=== PATIENT | male | born 1950 | race Caucasian/White ===

== ENCOUNTER 2021-02-28 13:45 | Day surgery (SDC) | payer MEDICARE, BC ==
[2021-02-23 16:38] LABS: BASOPHILS # (AUTO) 0.1 X10'3 (0-0.2); BASOPHILS % (AUTO) 0.9 % (0-1); EOSINOPHILS # (AUTO) 0.2 X10'3 (0-0.9); EOSINOPHILS % (AUTO) 3.4 % (0-6); LYMPHOCYTES # (AUTO) 1.5 X10'3 (1.1-4.8); LYMPHOCYTES % (AUTO) 22.2 % (21-51); MEAN CORPUSCULAR HEMOGLOBIN 31.9 PG (27.0-31.0); MEAN CORPUSCULAR HGB CONC 33.7 g/dL (33.0-36.5); MEAN CORPUSCULAR VOLUME 94.6 FL (78-98); MEAN PLATELET VOLUME 7.2 FL (7.4-10.4); MONOCYTES # (AUTO) 0.8 X10'3 (0-0.9); MONOCYTES % (AUTO) 11.7 % (2-12); NEUTROPHILS # (AUTO) 4.2 X10'3 (1.8-7.7); NEUTROPHILS % (AUTO) 61.8 % (42-75); PRE OP HEMATOCRIT 44.8 % (42.0-52.0); PRE OP HEMOGLOBIN 15.1 g/dL (14.0-17.9); PRE OP PLATELET COUNT 277 X10'3 (140-440); RED BLOOD COUNT 4.74 X10'6 (4.70-6.10); RED CELL DISTRIBUTION WIDTH 14.5 % (11.5-14.5)
[2021-02-23 16:48] LABS: PRE OP PROTIME 10.7 SECONDS (9.0-12.0)
[2021-02-23 16:52] LABS: ALBUMIN/GLOBULIN RATIO 1.1 (1.1-1.5); ALKALINE PHOSPHATASE 75 IU/L (46-116); BLOOD UREA NITROGEN 22 MG/DL (7-18); BUN/CREATININE RATIO 17.9 (5.4-32.0); CALCIUM 8.8 MG/DL (8.5-10.1); CHLORIDE 106 MMOL/L (99-107); CREATININE 1.23 MG/DL (0.60-1.10); PRE OP ALT 35 U/L (30-65); PRE OP ANION GAP 7 (8-16); PRE OP AST 18 U/L (10-37); PRE OP BILIRUB, TOTAL 0.3 MG/DL (0.0-1.0); PRE OP GLUCOSE 138 MG/DL (70-104); PRE OP POTASSIUM 4.8 MMOL/L (3.4-5.1); PRE OP SODIUM 143 MMOL/L (135-145); TOTAL CARBON DIOXIDE 30.1 MMOL/L (24-32); TOTAL PROTEIN 7.7 G/DL (6.4-8.2); eGFR 58 ML/MIN
[~2021-02-28] VITALS: Ht 177.8 cm; Wt 81.6 kg
[2021-02-28] VITALS (17 sets, daily range): BP systolic 114–191; BP diastolic 58–101
[~2021-02-28 13:45] MED LIST: FEXO-219 PO; FISH OIL; VITAMIN E; cefazolin/dext.iso 2gm/100ml IV ONE; famotidine 20mg tablet PO ONE; ringers solution, lacted 1,000 ML IV SCH; vancomycin 1,500 MG in NS 300ml IV soln IV ONE
[2021-02-28] MEDS ORDERED: BUPIVAcaine/PF 2.5 mg/ml (0.25%) 30ml vial ONE (14:39)
[2021-02-28] MEDS ORDERED: sevoflurane 250ml liquid IH ONE (14:42)
[2021-02-28] MEDS ORDERED: dexamethasone sod phosphate 10mg/ml inj ONE (14:42)
[2021-02-28] MEDS ORDERED: rocuronium 10mg/ml inj IV ONE (14:42)
[2021-02-28] MEDS ORDERED: midazolam 1 mg/ML 2ml injection ONE (14:42)
[2021-02-28] MEDS ORDERED: propofol inj 20 ML IV ONE (14:42)
[2021-02-28] MEDS ORDERED: ondansetron/PF 4mg/2ml inj ONE (14:42)
[2021-02-28] MEDS ORDERED: fentaNYL /PF 50mcg/ml 5ml ampule ONE (14:42)
[2021-02-28] MEDS ORDERED: ceFAZolin 1000mg inj ONE (14:44)
[2021-02-28] MEDS ORDERED: ringers solution, lacted 1,000 ML IV SCH (15:10)
[2021-02-28] MEDS ORDERED: ondansetron/PF 4mg/2ml inj IV PRN ×2 (15:10→17:55)
[2021-02-28] MEDS ORDERED: meperidine/PF 25mg/ml syringe IV PRN ×2 (15:10)
[2021-02-28] MEDS ORDERED: morphine 2 MG/ML inj. syringe IV PRN (15:10)
[2021-02-28] MEDS ORDERED: proCHLORperazine 10 MG/2 ml inj IV PRN (15:10)
[2021-02-28] MEDS ORDERED: morphine 4 MG/ML inj SYRINge IV PRN (15:10)
[2021-02-28] MEDS ORDERED: fentaNYL/PF 50MCG/1 ML 2ML syringe ONE (17:18)
--- NOTE | 2021-02-28 17:47 | NUR ---
Received from OR via , accompanied by Anesthesiologist DR LOVE and report given by Anesthesiolgist. PT PRESENT SWITH 20 G RIGHT FOREARM, PT'S LEFT SHOULDER DRESWSING DRY AND INTACT, VSS. Addendum: 02/28/21 at 1759 by Francine Maya RN, RN Amended: Links added.
[2021-02-28] MEDS ORDERED: acetaminophen 325mg tablet PO PRN (17:55)
[2021-02-28] MEDS ORDERED: magnesium hydroxide 30ml (MOM) UD suspension PO PRN (17:55)
[2021-02-28] MEDS ORDERED: bisacodyl 10mg suppository rectal RC PRN (17:55)
[2021-02-28] MEDS ORDERED: HYDROcodone/acetaminophen 10/325mg tab PO PRN (17:55)
[2021-02-28] MEDS ORDERED: potassium Cl 20mEq in NS 1,000 ML IV SCH (17:55)
[2021-02-28] MEDS ORDERED: diphenhydrAMINE 25mg capsule PO PRN ×2 (17:55)
[2021-02-28] MEDS: meperidine/PF 25mg/ml syringe IV PRN ×4 (18:15→18:54)
--- NOTE | 2021-02-28 19:16 | NUR ---
Patient in room . I have received report from Francine Mendoza in recovery and had the opportunity to ask questions and assume patient care. Addendum: 02/28/21 at 1916 by Kamilla Medina RN Amended: Links added.
--- NOTE | 2021-02-28 19:39 | NUR ---
PATIENT HAS MET ALL CRITERIA FOR TRANSFER TO THE ORTHO FLOOR. VSS. DRESSINGS INTACT. BED LOW, CALL LIGHT PRESENT AND 2 RAILS UP. SEAN MAYO PRESENT TO ACCEPT CARE OF PATIENT AND REPORT HAS BEEN CALLED. ALL QUESTIONS ANSWERED TO ACCEPTING RN. Addendum: 02/28/21 at 1940 by Francine Olivas - SEAN ESTRADA Amended: Links added.
[2021-02-28] MEDS ORDERED: vancomycin/NS 1 GM ADD-VANTAGE 250 ML IV SCH (20:00)
[2021-02-28] MEDS: HYDROmorphone 1 mg/ml syringe IV PRN (20:53)
[2021-02-28] MEDS ORDERED: sennosides 8.6mg tablet PO SCH (21:00)
--- NOTE | 2021-02-28 23:15 | NUR ---
PT RESTING COOL PACK TO LEFT SHOULDER VSS.
[2021-02-28] MEDS: ceFAZolin/D5W- 1GM premix 50 ML IV SCH (23:43)
[2021-03-01] VITALS: BP 114/58
[2021-03-01] MEDS: HYDROcodone/acetaminophen 10/325mg tab PO PRN ×3 (01:00→10:07)
--- NOTE | 2021-03-01 01:00 | NUR ---
pt awake c/o pain 04/19 medicated with po norco for this. vss.
[2021-03-01 02:00] VITALS: BP 179/73
--- NOTE | 2021-03-01 02:27 | NUR ---
RESTING WITHOUT CHANGES.
[2021-03-01] MEDS: HYDROmorphone 1 mg/ml syringe IV PRN ×2 (03:45→08:00)
--- NOTE | 2021-03-01 03:49 | NUR ---
awoke to void 320 per urinal and ice pack to left shoulder switched out. positioned to comfort and medicated for pain with Dilaudid iv for pain 04/19. at this time.
[2021-03-01 04:00] VITALS: BP 187/67
--- NOTE | 2021-03-01 05:07 | NUR ---
resting eyes closed appears comfortable.
--- NOTE | 2021-03-01 05:47 | NUR ---
pt awoke c/o pain 04/19 medicated with 2 norco's for this.
[2021-03-01 06:00] VITALS: BP 179/57
--- NOTE | 2021-03-01 06:08 | NUR ---
medicated for pain with 2 norco's po and new ice pack to left shoulder.
--- NOTE | 2021-03-01 06:24 | NUR ---
Problems reprioritized. Patient report given, questions answered & plan of care reviewed with BEBETO ESTRADA. Addendum: 03/01/21 at 06 by Kamilla Medina RN Amended: Links added.
--- NOTE | 2021-03-01 06:40 | NUR ---
Patient in room ORTHO 4022. I have received report from SEAN Kohli and had the opportunity to ask questions and assume patient care.
[2021-03-01] MEDS: ceFAZolin/D5W- 1GM premix 50 ML IV SCH (08:00)
[2021-03-01 10:00] VITALS: BP 148/80
[2021-03-01] MEDS ORDERED: HYDR-3972 PO (11:32)
== END 2021-03-01 12:15 | disposition home or self-care (01) ==
LOC: PRE-OP 13:45 → UNDOADMIN 17:55 → ORTHO 4S 17:55 → UNDOADMIN 19:37 → ORTHO 4S 19:37 → PRE-OP 03-01 12:15
PROVIDERS: ATTEND Orthopaedic Surgery
DX: S46.012A Strain of muscle(s) and tendon(s) of the rotator cuff of left shoulder, initial encounter (principal); M75.22 Bicipital tendinitis, left shoulder; M19.012 Primary osteoarthritis, left shoulder; Z20.822 Contact with and (suspected) exposure to COVID-19; Z79.899 Other long term (current) drug therapy; Z79.01 Long term (current) use of anticoagulants; X58.XXXA Exposure to other specified factors, initial encounter; Y93.89 Activity, other specified; Y92.89 Other specified places as the place of occurrence of the external cause; Y99.8 Other external cause status
CPT/HCPCS: 23120; 23130; 23412; 23430; 36415; 80053; 82948; 85025; 85610; 85730; 93005; A6223; C1713; J0690; J1100; J1170; J2175; J2250; J2405; J2704; J3010; J3370; J3480; J3490; J7040; U0003; U0005; A4565; A4618; A6253; A6449; A7000; G0378; J7120

== ENCOUNTER 2024-11-20 09:50 | Day surgery (SDC) | payer MEDICARE, BC ==
[2024-11-17 14:37] LABS: BASOPHILS % (AUTO) 0.5 % (0-1); EOSINOPHILS # (AUTO) 0.2 X10'3 (0-0.9); LYMPHOCYTES # (AUTO) 1.7 X10'3 (1.1-4.8); LYMPHOCYTES % (AUTO) 26.4 % (21-51); MEAN CORPUSCULAR HEMOGLOBIN 32.3 PG (27.0-31.0); MEAN CORPUSCULAR HGB CONC 34.2 g/dL (33.0-36.5); MEAN CORPUSCULAR VOLUME 94.7 FL (78-98); MEAN PLATELET VOLUME 6.6 FL (7.4-10.4); MONOCYTES # (AUTO) 0.8 X10'3 (0-0.9); MONOCYTES % (AUTO) 12.1 % (2-12); NEUTROPHILS # (AUTO) 3.7 X10'3 (1.8-7.7); PRE OP HEMATOCRIT 41.8 % (42.0-52.0); PRE OP HEMOGLOBIN 14.3 g/dL (14.0-17.9); PRE OP PLATELET COUNT 262 X10'3 (140-440); PRE OP WHITE BLOOD COUNT 6.5 10'3 (4.8-10.8); RED BLOOD COUNT 4.41 X10'6 (4.70-6.10); RED CELL DISTRIBUTION WIDTH 14.7 % (11.5-14.5)
[2024-11-17 14:58] LABS: ALBUMIN 3.7 G/DL (3.4-5.0); ALKALINE PHOSPHATASE 75 IU/L (46-116); BLOOD UREA NITROGEN 20 MG/DL (7-18); BUN/CREATININE RATIO 18.7 (10.0-20.0); CALCIUM 8.4 MG/DL (8.5-10.1); CHLORIDE 106 MMOL/L (99-107); CREATININE 1.07 MG/DL (0.60-1.10); PRE OP ALT 36 U/L (30-65); PRE OP ANION GAP 5 (8-16); PRE OP BILIRUB, TOTAL 0.4 MG/DL (0.0-1.0); PRE OP POTASSIUM 4.2 MMOL/L (3.4-5.1); PRE OP SODIUM 141 MMOL/L (135-145); TOTAL PROTEIN 7.5 G/DL (6.4-8.2); eGFR 68 ML/MIN
[2024-11-17 15:01] LABS: PRE OP GLUCOSE 121 MG/DL (70-104)
[2024-11-17 15:26] LABS: PRE OP AST 22 U/L (10-37)
[~2024-11-20] VITALS: Ht 175.3 cm; Wt 80.7 kg
[2024-11-20] VITALS (11 sets, daily range): BP systolic 118–164; BP diastolic 51–100; PULSE 75–98; RESP 12–17; TEMP 98.5; O2SAT 94–100
[~2024-11-20 09:50] MED LIST changes: +B-12 PO; +D-3 PO; -FEXO-219 PO; -FISH OIL; +MAGNESIUM PO; -VITAMIN E; +[UNRECOGNIZED DRUG - OTHER] PO; -cefazolin/dext.iso 2gm/100ml IV ONE; +enalaprilat 1.25mg/ml 2ml vial IV PRN; -famotidine 20mg tablet PO ONE; +fentaNYL/PF 50MCG/1 ML 2ML syringe IV ONE; +labetalol 20mg/4ml (5mg/ml) syringe IV PRN; +meperidine/PF 25mg/ml syringe IV PRN; +morphine 4 MG/ML inj SYRINge IV PRN; +ondansetron/PF 4mg/2ml inj IV PRN; +proCHLORperazine 10 MG/2 ml inj IV PRN; -vancomycin 1,500 MG in NS 300ml IV soln IV ONE
[2024-11-20] MEDS: ceFAZolin 2gm in dextrose, iso 50 ML IV ONE ×2 (10:05→10:33)
[2024-11-20] MEDS: famotidine 20mg tablet PO ONE (10:33)
[2024-11-20] MEDS: tamsulosin 0.4mg capsule PO ONE (10:33)
[2024-11-20] MEDS ORDERED: LIDOcaine 1% 30ml preserv. free vial ONE (11:56)
[2024-11-20] MEDS ORDERED: BUPIVAcaine 2.5mg/ml inj 50ml vial (contains preservative) ONE (11:56)
[2024-11-20] MEDS ORDERED: sevoflurane 250ml liquid IH ONE (12:07)
[2024-11-20] MEDS ORDERED: midazolam 1 mg/ML 2ml injection ONE (12:21)
[2024-11-20] MEDS ORDERED: fentaNYL/PF 50MCG/1 ML 2ML syringe ONE (12:21)
[2024-11-20] MEDS ORDERED: dexamethasone sod phosphate 4mg/ml inj. ONE (12:30)
[2024-11-20] MEDS ORDERED: propofol inj 20 ML IV ONE (12:30)
[2024-11-20] MEDS ORDERED: rocuronium 10mg/ml inj IV ONE (12:30)
[2024-11-20] MEDS ORDERED: LIDOcaine 2% (20mg/ml) 5ml vial ONE (12:30)
[2024-11-20] MEDS ORDERED: ePHEDrine 50MG/ML INJ. ONE (12:34)
[2024-11-20] MEDS ORDERED: ondansetron/PF 4mg/2ml inj ONE (12:34)
[2024-11-20] MEDS: BUPIVAcaine/PF 2.5 mg/ml (0.25%) 30ml vial IJ ONE (12:38)
[2024-11-20] MEDS ORDERED: sugammadex 200mg/2ml injection IV ONE (13:17)
[2024-11-20] MEDS ORDERED: HYDROcodone/acetaminophen 5mg/325mg tablet PO PRN (13:35)
[2024-11-20] MEDS: morphine 2 MG/ML inj. syringe IV PRN (14:00)
== END 2024-11-20 15:04 | disposition home or self-care (01) ==
LOC: PAS 09:50
PROVIDERS: ATTEND Surgery
DX: K40.30 Unilateral inguinal hernia, with obstruction, without gangrene, not specified as recurrent (principal); Z79.899 Other long term (current) drug therapy; Z98.890 Other specified postprocedural states; Z96.619 Presence of unspecified artificial shoulder joint
CPT/HCPCS: 36415; 49650; 80053; 82948; 85025; 93005; A4215; A4618; C1781; J0131; J0690; J1100; J2003; J2250; J2270; J2405; J2704; J3010; J3490; J7030; J7120; Z7506; Z7508; Z7512; Z7610